=== PATIENT | female | born 1985 | race Two or more races ===

== ENCOUNTER 2019-02-14 20:22 | Emergency (ER) | payer MEDICAID, OTHER ==
[~2019-02-14] VITALS: Ht 162.6 cm; Wt 70.8 kg
[2019-02-14 22:00] LABS: Urine WBC None Seen /hpf (0 - 5)
[2019-02-14 22:02] LABS: Basophils # (auto) 0.1 uL; Basophils % (auto) 0.5 % (0.0-2.0); Eosinophils # (auto) 0 uL; Eosinophils % (auto) 0.2 % (0.0-7.0); Hematocrit 42.8 % (36.0-46.0); Hemoglobin 14.3 g/dL (12.2-16.2); Lymphocytes # (auto) 1.4 uL; Lymphocytes % (auto) 11.9 % (10.0-50.0); Mean Corpuscular Hemoglobin 29.9 pg (28.0-32.0); Mean Corpuscular Hgb Conc. 33.4 g/dL (32.0-36.0); Mean Corpuscular Volume 89.4 fL (80.0-100.0); Monocytes # (auto) 0.5 uL; Neutrophils # (auto) 10.2 uL; Neutrophils % (auto) 83.4 % (37.0-80.0); Platelet Count (auto) 268 10^3/uL (140-450); Red Blood Cells 4.78 10^6/uL (4.0-5.20); Red Cell Distribution Width 12.9 % (11.8-14.3); White Blood Cell 12.2 10^3/uL (4.4-10.8)
[2019-02-14 22:16] LABS: Urine Bacteria FEW /hpf (None Seen); Urine Blood TRACE /uL (Negative); Urine Specific Gravity 1.024 (1.001-1.035)
[2019-02-14 22:20] LABS: Albumin 3.7 g/dL (3.4-5.0); Anion Gap 8 (5-15); Blood Urea Nitrogen 12 mg/dL (7-18); Calcium 8.6 mg/dL (8.5-10.1); Carbon Dioxide 26 mmol/L (21-32); Chloride 107 mmol/L (98-107); Glucose 117 mg/dL (74-106); Potassium 3.5 mmol/L (3.5-5.1); Sodium 141 mmol/L (136-145)
[2019-02-14 22:22] LABS: Alanine Aminotransferase 17 U/L (13-56); Aspartate Aminotransferase 13 U/L (15-37); BUN/Creatinine Ratio 14.5; GFR African American 102 mL/min; GFR Non-African American 85 mL/min
[2019-02-14 22:26] LABS: Alkaline Phosphatase 96 U/L (45-117); Bilirubin, Total 0.4 mg/dL (0.2-1.0); Total Protein 7.3 g/dL (6.4-8.2)
[2019-02-15] MEDS ORDERED: ONDANSETRON HCL 4 MG/2 ML VIAL IM ONE (03:15)
[2019-02-15] MEDS ORDERED: MORPHINE SULFATE 4 MG/ML SYR/VIAL IM ONE (03:15)
[2019-02-15] MEDS ORDERED: FAMOTIDINE 20 MG TAB PO ONE (03:15)
[2019-02-15 03:26] VITALS: BP 118/76
== END 2019-02-15 04:45 | disposition home or self-care (01) ==
LOC: ER 20:30
DX: K58.9 Irritable bowel syndrome, unspecified (principal)
CPT/HCPCS: 36415; 74176; 80053; 81001; 81025; 82962; 84484; 85025; 96372; 99284; J2270; J2405

== ENCOUNTER 2022-02-17 06:23 | Emergency (ER) | payer MEDICAID ==
[~2022-02-17] VITALS: Ht 165.1 cm; Wt 65.0 kg
[2022-02-17] MEDS ORDERED: SODIUM CHLORIDE 0.9% 1,000 ML IV ONE (06:45)
[2022-02-17 07:08] LABS: Basophils # (auto) 0.1 10 ^3/uL (0-0.2); Basophils % (auto) 0.8 % (0.0-2.0); Eosinophils # (auto) 0 10 ^3/uL (0-0.8); Eosinophils % (auto) 0.3 % (0.0-7.0); Hematocrit 45.9 % (36.0-46.0); Hemoglobin 14.9 g/dL (12.2-16.2); Lymphocytes # (auto) 1.7 10 ^3/uL (0.4-5.4); Lymphocytes % (auto) 18.4 % (10.0-50.0); Mean Corpuscular Hemoglobin 28.3 pg (28.0-32.0); Mean Corpuscular Hgb Conc. 32.5 g/dL (32.0-36.0); Mean Corpuscular Volume 86.9 fL (80.0-100.0); Monocytes # (auto) 0.3 10 ^3/uL (0-1.3); Monocytes % (auto) 3.8 % (0.0-12.0); Neutrophils # (auto) 6.9 10 ^3/uL (1.6-8.6); Neutrophils % (auto) 76.7 % (37.0-80.0); Red Blood Cells 5.29 10^6/uL (4.0-5.20); Red Cell Distribution Width 13.1 % (11.8-14.3)
[2022-02-17 09:29] VITALS: BP 114/62
[2022-02-17 09:44] LABS: Urine WBC None Seen /hpf (0 - 5)
[2022-02-17 09:59] LABS: Urine Bacteria NONE SEEN /hpf (None Seen); Urine Blood 3+ /uL (Negative); Urine Hyaline Cast FEW /lpf (0 - 2); Urine Mucus FEW (None Seen); Urine Specific Gravity 1.014 (1.001-1.035)
[2022-02-17] MEDS ORDERED: ONDANSETRON HCL 4 MG/2 ML VIAL IV ONE (10:15)
[2022-02-17] MEDS ORDERED: MORPHINE SULFATE 4 MG/ML SYR/VIAL IV ONE (10:15)
[2022-02-17] MEDS ORDERED: CEPH-322 PO (10:18)
== END 2022-02-17 10:46 | disposition home or self-care (01) ==
LOC: ER 06:23 → EDBD 06:23 → ER 10:44
DX: O20.0 Threatened abortion (principal); Z3A.00 Weeks of gestation of pregnancy not specified
CPT/HCPCS: 36415; 76801; 76817; 81001; 84702; 85025; 96360; 99284; J7030

== ENCOUNTER 2023-10-02 08:24 | Emergency (ER) | payer MEDICAID ==
[~2023-10-02] VITALS: Ht 162.6 cm; Wt 74.0 kg
[~2023-10-02 08:24] MED LIST: CEPH250C PO
[2023-10-02 08:43] VITALS: TEMP 97.4
[2023-10-02 08:54] LABS: Urine Bacteria NONE SEEN /hpf (None Seen); Urine Blood Negative /uL (Negative); Urine Clarity Clear (Clear); Urine Protein, UAD Negative (Negative); Urine Specific Gravity 1.005 (1.001-1.035); Urine Urobilinogen Normal (Negative); Urine WBC 1 /hpf (0 - 5)
[2023-10-02 08:55] LABS: Urine Color Straw (Yellow)
[2023-10-02 09:25] VITALS: O2SAT 100
[2023-10-02] MEDS: MORPHINE SULFATE INJ 2 MG/ml SYRG IM ONE (10:12)
[2023-10-02 10:50] LABS: Basophils # (auto) 0.1 10 ^3/uL (0-0.2); Basophils % (auto) 0.8 % (0.0-2.0); Eosinophils # (auto) 0 10 ^3/uL (0-0.8); Eosinophils % (auto) 0.7 % (0.0-7.0); Hematocrit 43.6 % (36.0-46.0); Hemoglobin 14.4 g/dL (12.2-16.2); Lymphocytes # (auto) 1.9 10 ^3/uL (0.4-5.4); Lymphocytes % (auto) 27.7 % (10.0-50.0); Mean Corpuscular Hemoglobin 28.8 pg (28.0-32.0); Mean Corpuscular Hgb Conc. 32.9 g/dL (32.0-36.0); Mean Corpuscular Volume 87.4 fL (80.0-100.0); Monocytes # (auto) 0.3 10 ^3/uL (0-1.3); Neutrophils # (auto) 4.4 10 ^3/uL (1.6-8.6); Neutrophils % (auto) 65.8 % (37.0-80.0); Red Blood Cells 4.99 10^6/uL (4.0-5.20); Red Cell Distribution Width 12.8 % (11.8-14.3); White Blood Cell 6.7 10^3/uL (4.4-10.8)
[2023-10-02 10:52] LABS: Chloride 108 mmol/L (98-107); Potassium 4.2 mmol/L (3.5-5.1); Sodium 138 mmol/L (136-145)
[2023-10-02 10:53] VITALS: BP 119/77; PULSE 85; RESP 18
[2023-10-02 10:53] LABS: Anion Gap 3 (5-15); Calcium 9.2 mg/dL (8.7-10.4); Carbon Dioxide 27 mmol/L (20-30)
[2023-10-02 10:58] LABS: BUN/Creatinine Ratio 7.5 (10.0-20.0); Blood Urea Nitrogen 6 mg/dL (9-23); Glucose 97 mg/dL (74-106); Lipase 56 U/L (12-53)
[2023-10-02] MEDS: HYOSCYAMINE SULF 0.125 MG ODT TAB PO ONE (11:19)
[2023-10-02] MEDS ORDERED: HYOS0.1250 PO (11:49)
== END 2023-10-02 11:51 | disposition home or self-care (01) ==
LOC: ER 08:24
DX: R10.9 Unspecified abdominal pain (principal); Z79.899 Other long term (current) drug therapy
CPT/HCPCS: 36415; 74176; 80048; 81001; 81025; 83690; 85025; 96372; 99285; J2270

== ENCOUNTER 2023-11-09 18:02 | Emergency (ER) | payer MEDICAID ==
[~2023-11-09] VITALS: Ht 162.6 cm; Wt 72.4 kg
[~2023-11-09 18:02] MED LIST changes: +HYOS0.1250 PO
[2023-11-09 19:12] VITALS: BP 128/98; PULSE 98; RESP 18; TEMP 98.9; O2SAT 99
[2023-11-09 21:53] LABS: COVID19 ANTIGEN SOFIA FIA NEGATIVE (NEGATIVE); Rapid Influenza A Negative (Negative); Rapid Influenza B Negative (Negative)
[2023-11-09] MEDS ORDERED: IBUP-1455 PO (23:12)
[2023-11-09] MEDS ORDERED: PRED20TA2 PO (23:12)
[2023-11-09] MEDS ORDERED: CYCL-839 PO (23:12)
[2023-11-09] MEDS ORDERED: BENZLOZ2 MT (23:12)
[2023-11-09] MEDS ORDERED: CLIN150C18 PO (23:12)
[2023-11-09] MEDS: ONDANSETRON ODT 4 MG TAB PO ONE (23:52)
[2023-11-09] MEDS: IBUPROFEN 800 MG TAB PO ONE (23:53)
[2023-11-10] MEDS: cefTRIAXone SOD 1,000 MG VL IM ONE (00:08)
[2023-11-10] MEDS: DexAMETHasone SOD PHOS 10MG/1ML VIAL INJ IM ONE (00:08)
[2023-11-10] MEDS: LIDOCAINE VISCOUS 2% 15ML UD MT ONE (00:09)
[2023-11-11] MEDS ORDERED: HYDR-3682 PO (13:31)
== END 2023-11-10 00:34 | disposition home or self-care (01) ==
LOC: ER 18:02
DX: J03.90 Acute tonsillitis, unspecified (principal); H92.03 Otalgia, bilateral; M62.838 Other muscle spasm; Z20.822 Contact with and (suspected) exposure to COVID-19
CPT/HCPCS: 36415; 70450; 71045; 87426; 87804; 96372; 99285; J0696; J1100; Q0162

== ENCOUNTER 2023-11-11 12:15 | Emergency (ER) | payer MEDICAID ==
[~2023-11-11] VITALS: Ht 162.6 cm; Wt 72.9 kg
[~2023-11-11 12:15] MED LIST changes: +BENZLOZ2 MT; +CLIN150C18 PO; +CYCL-839 PO; +IBUP-1455 PO; +PRED20TA2 PO
[2023-11-11] MEDS ORDERED: HYDR-3682 PO (13:31)
[2023-11-11 13:49] VITALS: BP 116/68; PULSE 97; RESP 18; TEMP 97.9; O2SAT 98
[2023-11-11] MEDS: LORazepam 0.5 MG TAB PO ONE (14:03)
== END 2023-11-11 14:35 | disposition home or self-care (01) ==
LOC: ER 12:15
DX: F32.9 Major depressive disorder, single episode, unspecified (principal); F41.9 Anxiety disorder, unspecified; F45.9 Somatoform disorder, unspecified

== ENCOUNTER 2024-01-15 09:06 | Emergency (ER) | payer MEDICAID ==
[~2024-01-15] VITALS: Ht 162.6 cm; Wt 74.4 kg
[~2024-01-15 09:06] MED LIST changes: +HYDR-3682 PO
[2024-01-15 09:53] LABS: Urine Bacteria MANY /hpf (None Seen); Urine Blood 1+ /uL (Negative); Urine Clarity Turbid (Clear); Urine Color Light-Yellow (Yellow); Urine Mucus FEW (None Seen); Urine Protein, UAD TRACE (Negative); Urine Specific Gravity 1.016 (1.001-1.035); Urine Urobilinogen Normal (Negative); Urine WBC 46 /hpf (0 - 5); Urine pH 6.5 (5.0-9.0)
[2024-01-15 10:02] VITALS: BP 113/74; PULSE 100; RESP 19; TEMP 98.4; O2SAT 98
[2024-01-15] MEDS: cefTRIAXone SOD 1,000 MG VL IM ONE (10:12)
[2024-01-15] MEDS: LIDOCAINE 1% HCL (LOCAL ANESTH.) INJ 20ML MDV ONE (10:13)
[2024-01-15] MEDS: LIDOCAINE 1% HCL (LOCAL ANESTH.) INJ 20ML MDV IJ ONE (10:20)
[2024-01-15 10:40] LABS: Basophils # (auto) 0 10 ^3/uL (0-0.2); Basophils % (auto) 0.3 % (0.0-2.0); Eosinophils # (auto) 0 10 ^3/uL (0-0.8); Eosinophils % (auto) 0.4 % (0.0-7.0); Hematocrit 39.7 % (36.0-46.0); Hemoglobin 13.3 g/dL (12.2-16.2); Lymphocytes # (auto) 0.7 10 ^3/uL (0.4-5.4); Lymphocytes % (auto) 6.5 % (10.0-50.0); Mean Corpuscular Hemoglobin 29.5 pg (28.0-32.0); Mean Corpuscular Hgb Conc. 33.4 g/dL (32.0-36.0); Mean Corpuscular Volume 88.4 fL (80.0-100.0); Monocytes # (auto) 0.3 10 ^3/uL (0-1.3); Monocytes % (auto) 2.9 % (0.0-12.0); Neutrophils # (auto) 9.2 10 ^3/uL (1.6-8.6); Neutrophils % (auto) 89.9 % (37.0-80.0); Red Blood Cells 4.49 10^6/uL (4.0-5.20); Red Cell Distribution Width 14.5 % (11.8-14.3); White Blood Cell 10.2 10^3/uL (4.4-10.8)
[2024-01-15] MEDS ORDERED: PHEN-922 PO (11:18)
[2024-01-15] MEDS ORDERED: NITR-87 PO (11:18)
== END 2024-01-15 11:24 | disposition home or self-care (01) ==
LOC: ER 09:06
DX: N30.90 Cystitis, unspecified without hematuria (principal); Z79.899 Other long term (current) drug therapy
CPT/HCPCS: 36415; 81001; 85025; 96372; 99283; J0696; J2001

== ENCOUNTER 2024-04-24 07:32 | Emergency (ER) | payer MEDICAID ==
[~2024-04-24] VITALS: Ht 162.6 cm; Wt 73.9 kg
[~2024-04-24 07:32] MED LIST changes: +NITR-87 PO; +PHEN-922 PO
[2024-04-24 08:09] VITALS: BP 142/93; PULSE 87; RESP 18; TEMP 98.2; O2SAT 98
[2024-04-24 08:34] LABS: Basophils # (auto) 0.1 10 ^3/uL (0-0.2); Basophils % (auto) 0.9 % (0.0-2.0); Eosinophils # (auto) 0 10 ^3/uL (0-0.8); Eosinophils % (auto) 0.6 % (0.0-7.0); Hematocrit 42.3 % (36.0-46.0); Hemoglobin 14.2 g/dL (12.2-16.2); Lymphocytes # (auto) 2.2 10 ^3/uL (0.4-5.4); Lymphocytes % (auto) 28.8 % (10.0-50.0); Mean Corpuscular Hemoglobin 29.6 pg (28.0-32.0); Mean Corpuscular Hgb Conc. 33.6 g/dL (32.0-36.0); Monocytes # (auto) 0.4 10 ^3/uL (0-1.3); Monocytes % (auto) 5.1 % (0.0-12.0); Neutrophils % (auto) 64.6 % (37.0-80.0); Nucleated Red Blood Cells % 0.1 %; Platelet Count (auto) 281 10^3/uL (140-450); Red Cell Distribution Width 13.1 % (11.8-14.3); White Blood Cell 7.8 10^3/uL (4.4-10.8)
[2024-04-24 08:37] LABS: Urine Bacteria FEW /hpf (None Seen); Urine Blood Negative /uL (Negative); Urine Clarity Clear (Clear); Urine Color Light-Yellow (Yellow); Urine Protein, UAD Negative (Negative); Urine Specific Gravity 1.006 (1.001-1.035); Urine Urobilinogen Normal (Negative); Urine WBC 1 /hpf (0 - 5)
[2024-04-24 08:40] LABS: Chloride 109 mmol/L (98-107); Potassium 3.5 mmol/L (3.5-5.1); Sodium 140 mmol/L (136-145)
[2024-04-24 08:41] LABS: Anion Gap 4 (5-15); Carbon Dioxide 27 mmol/L (20-31)
[2024-04-24 08:42] LABS: Calcium 9.8 mg/dL (8.7-10.4)
[2024-04-24 08:47] LABS: BUN/Creatinine Ratio 5.9 (10.0-20.0); Blood Urea Nitrogen 6 mg/dL (9-23); Glucose 104 mg/dL (74-106)
[2024-04-24] MEDS ORDERED: MORPHINE SULFATE INJ 2 MG/ml SYRG IM ONE (09:00)
[2024-04-24] MEDS ORDERED: GABA-1308 PO (09:03)
[2024-04-24] MEDS ORDERED: BACL20TA PO (09:03)
== END 2024-04-24 09:11 | disposition home or self-care (01) ==
LOC: ER 07:32
DX: G50.0 Trigeminal neuralgia (principal); M26.602 Left temporomandibular joint disorder, unspecified; Z32.02 Encounter for pregnancy test, result negative
CPT/HCPCS: 36415; 80048; 81001; 81025; 85025